=== PATIENT | female | born 1975 | race African-American/Black ===

== ENCOUNTER 2021-01-27 23:37 | Emergency (ER) | payer OTHER ==
[~2021-01-27] VITALS: Ht 162.6 cm; Wt 81.0 kg
[2021-01-28] MEDS ORDERED: DIPHENHYDRAMINE 50MG/ML VIAL IV ONE (00:15)
[2021-01-28] MEDS ORDERED: METHYLPREDNISOLONE SOD SUCC 125 MG/2 ML VIAL IV ONE (00:15)
[2021-01-28] MEDS ORDERED: EPINEPHRINE 1:1000 1 MG/ML AMP SUBCUT ONE (00:15)
[2021-01-28] MEDS ORDERED: SODIUM CHLORIDE 0.9% 1,000 ML IV SCH (00:15)
[2021-01-28] MEDS ORDERED: FAMOTIDINE 20MG/2ML VIAL IV ONE (00:15)
[2021-01-28] MEDS ORDERED: P20 MT (02:58)
[2021-01-28] MEDS ORDERED: EPIN0.3P3 IM (02:58)
[2021-01-28] MEDS ORDERED: DIPH25CA83 MT (02:58)
[2021-01-28 03:20] VITALS: BP 129/79
== END 2021-01-28 03:30 | disposition home or self-care (01) ==
LOC: ER 23:37
DX: T78.2XXA Anaphylactic shock, unspecified, initial encounter (principal); X58.XXXA Exposure to other specified factors, initial encounter; Z88.0 Allergy status to penicillin
CPT/HCPCS: 93005; 99285; J1200; J2930; J3490

== ENCOUNTER 2022-08-23 21:52 | Emergency (ER) | payer OTHER ==
[~2022-08-23] VITALS: Ht 162.6 cm; Wt 68.0 kg
[~2022-08-23 21:52] MED LIST: DIPH25CA83 MT; EPIN0.3P3 IM; P20 MT
[2022-08-23 22:01] VITALS: TEMP 98.3; O2SAT 100
[2022-08-23] MEDS ORDERED: METHYLPREDNISOLONE SOD SUCC 125MG/2ML (ACT-O-VIAL) IV STA (22:25)
[2022-08-23] MEDS ORDERED: FAMOTIDINE 20MG/2ML VIAL IV ONE (22:30)
[2022-08-23] MEDS ORDERED: DIPHENHYDRAMINE 50MG/ML VIAL IV ONE (22:30)
[2022-08-23 22:50] LABS: BASOPHILS % 0.5 % (0.0-2.0); HEMATOCRIT. 39.8 % (36.0-48.0); HEMOGLOBIN. 12.9 g/dL (12.0-16.0); MEAN CORPUSCULAR HEMOGLOBIN 28.3 pg (28.0-32.0); MEAN CORPUSCULAR VOLUME 87.4 fL (81.0-99.0); MEAN PLATELET VOLUME 9.1 fl (7.4-10.4); MONOCYTES % 6.9 % (2.0-8.0); NEUTROPHILS % 57.6 % (40.0-76.0); PLATELET 235 x1000/uL (130-400); RED BLOOD CELL COUNT 4.55 mill/uL (4.2-5.4); RED CELL DISTRIBUTION WIDTH 14.3 % (11.6-14.6)
[2022-08-23 22:57] LABS: CHLORIDE 103 mEq/L (98-107)
[2022-08-23 23:01] LABS: HCG SCREEN NEGATIVE
[2022-08-24] MEDS ORDERED: DIPH25CA83 MT (00:58)
[2022-08-24] MEDS ORDERED: P20 MT (00:58)
[2022-08-24] MEDS ORDERED: EPIN0.3P3 IM (00:58)
[2022-08-24 01:14] VITALS: BP 120/70; PULSE 61; RESP 16
== END 2022-08-24 02:13 | disposition home or self-care (01) ==
LOC: ER 23:59
DX: T78.40XA Allergy, unspecified, initial encounter (principal); R07.89 Other chest pain; W18.39XA Other fall on same level, initial encounter
CPT/HCPCS: 80053; 84703; 83880; 85025; 84484 ×2; 36415 ×2; 71045; 93005; 96374; 96375; 99285; J1200; J3490; J2930; Z7610 ×2